=== PATIENT | male | born 1940 | race Caucasian/White ===

== ENCOUNTER 2017-11-19 08:20 | Day surgery (SDC) | payer MEDICARE ==
[~2017-11-19] VITALS: Ht 167.6 cm; Wt 94.9 kg
[2017-11-19] MEDS ORDERED: normal saline 1000ml 1,000 ML IV PRN (08:55)
[2017-11-19 09:00] VITALS: BP 134/63
[2017-11-19] MEDS ORDERED: ATOR10TA70 PO (09:04)
[2017-11-19] MEDS ORDERED: APIX5TAB3 PO (09:04)
[2017-11-19] MEDS ORDERED: ATEN25TA PO (09:04)
[2017-11-19] MEDS ORDERED: MULT-38 PO (09:04)
[2017-11-19] MEDS ORDERED: TERA5CAP4 PO (09:04)
[2017-11-19 09:25] LABS: BASOPHILS % (AUTO) 0.6 % (0-1); EOSINOPHILS # (AUTO) 0.1 X10'3 (0-0.9); EOSINOPHILS % (AUTO) 2.4 % (0-6); HEMATOCRIT 42.4 % (42.0-52.0); HEMOGLOBIN 14.9 g/dl (14.0-17.9); LYMPHOCYTES # (AUTO) 0.8 X10'3 (1.1-4.8); LYMPHOCYTES % (AUTO) 13.9 % (21-51); MEAN CORPUSCULAR HEMOGLOBIN 35.4 PG (27.0-31.0); MEAN CORPUSCULAR HGB CONC 35.1 % (33.0-36.5); MEAN CORPUSCULAR VOLUME 100.8 FL (78-98); MEAN PLATELET VOLUME 8.3 FL (7.4-10.4); MONOCYTES # (AUTO) 0.4 X10'3 (0-0.9); MONOCYTES % (AUTO) 7.2 % (2-12); NEUTROPHILS # (AUTO) 4.1 X10'3 (1.8-7.7); NEUTROPHILS % (AUTO) 75.9 % (42-75); PLATELET COUNT 143 X10'3 (140-440); RED BLOOD COUNT 4.21 X10'6 (4.70-6.10); RED CELL DISTRIBUTION WIDTH 13.8 % (11.5-14.5); WHITE BLOOD COUNT 5.4 X10'3 (4.5-11.0)
[2017-11-19 11:05] VITALS: BP 172/96
[2017-11-19 11:14] VITALS: BP 170/90
[2017-11-19 11:33] VITALS: BP 140/65
== END 2017-11-19 11:45 | disposition home or self-care (01) ==
LOC: SSTAY O 08:20
PROVIDERS: ATTEND Radiology Diagnostic Radiology
DX: C83.34 Diffuse large B-cell lymphoma, lymph nodes of axilla and upper limb (principal); E78.5 Hyperlipidemia, unspecified; I25.10 Atherosclerotic heart disease of native coronary artery without angina pectoris; I48.91 Unspecified atrial fibrillation; M19.042 Primary osteoarthritis, left hand; M19.041 Primary osteoarthritis, right hand; Z79.01 Long term (current) use of anticoagulants; Z95.1 Presence of aortocoronary bypass graft; Z87.891 Personal history of nicotine dependence; Z96.651 Presence of right artificial knee joint; Z72.89 Other problems related to lifestyle; Z79.899 Other long term (current) drug therapy
CPT/HCPCS: 36415; 38505; 77012; 85025; 88184; 88185; 88341; 88342; J7030; 88305